=== PATIENT | male | born 1990 | race Caucasian/White ===

== ENCOUNTER 2018-01-30 18:25 | Emergency (ER) | payer SELFPAY ==
[~2018-01-30] VITALS: Ht 177.8 cm; Wt 51.5 kg
[2018-01-30 18:34] VITALS: Ht 177.8 cm; Wt 51.5 kg
[2018-01-30] MEDS ORDERED: SODIUM CHLORIDE 0.9% 1000ML 1,000 ML IV STA (18:36)
[2018-01-30 19:13] LABS: HEMATOCRIT 37.7 % (42-52); MEAN CELL VOLUME 88.5 fL (80-100); MEAN CORPUSCULAR HEMOGLOBIN 30.5 pg (25-34); MEAN CORPUSCULAR HGB CONC 34.5 g/dl (32-36); MEAN PLATELET VOLUME 9.7 fL (7.4-10.4); PLATELET COUNT 209 K/uL (130-400); RED CELL DISTRIBUTION WIDTH CV 13.6 % (11.5-14.5); RED CELL DISTRIBUTION WIDTH SD 43.6 fL (36.4-46.3); WHITE BLOOD COUNT 5.63 K/uL (4.8-10.8)
[2018-01-30 19:44] LABS: CALCIUM 8.5 mg/dl (8.5-10.1); CREATININE 0.73 mg/dl (0.60-1.40); POTASSIUM 3.4 mmol/L (3.5-5.1); TOTAL PROTEIN 7.4 gm/dl (6.4-8.2)
--- NOTE | 2018-01-30 20:01 | EMERGENCY ROOM VISIT NOTE ---
History Report prepared by Luiz: Richie Blackmon Under the Supervision of: Dr. Fabian Rodríguez M.D. First contact with patient: 18:31 Chief Complaint: OVERDOSE (ACCIDENTAL) Stated Complaint: INGESTED METHANE History of Present Illness History is limited due to altered mental status. The patient is a 27 year old male who presents to the Emergency Room. EMS states that prior to arrival, several witness reported that the patient was found wandering around [address] in [place], he was acting strangely and jumping on the ribs or cars. He does admit to taking methamphetamine as well as Suboxone at noon today. The patient reports that he was trying to get high and denies being suicidal. He has no complaints. Source of History: patient, EMS, nursing staff Onset: prior to arrival, around noon today Position: other (global) Quality: other (Suboxone and meth) Timing: other (intake prior to arrival) Modifying Factors (Relieving): other (none) Review of Systems ROS limited due to altered mental status. Past Medical & Surgical Medical Problems: (1) No significant past medical history Family History Patient reports no known family medical history. Social History Smoking Status: Unknown if Ever Smoked Current/Historical Medications No Active Prescriptions or Reported Meds Allergies Coded Allergies: No Known Allergies (Unverified , 01/30/18) Physical Exam Vital Signs Date Time Temp Pulse Resp B/P (MAP) Pulse Ox O2 Delivery O2 Flow Rate FiO2 01/31/18 00:41 46 14 99 01/31/18 00:31 108/65 01/31/18 00:11 49 12 97 01/31/18 00:01 120/77 01/30/18 23:41 50 14 96 01/30/18 23:36 50 15 96 01/30/18 23:31 104/64 01/30/18 23:06 52 15 97 01/30/18 23:01 105/68 01/30/18 22:55 63 15 98 01/30/18 22:43 52 18 107/78 99 Room Air 01/30/18 22:40 48 01/30/18 22:31 107/78 01/30/18 22:25 52 24 96 01/30/18 22:01 118/74 01/30/18 21:55 62 19 99 01/30/18 21:54 73 18 114/70 99 Room Air 01/30/18 21:31 114/70 01/30/18 21:25 53 15 97 01/30/18 21:01 123/65 01/30/18 20:55 46 14 97 01/30/18 20:46 51 18 116/73 98 Room Air 01/30/18 20:31 116/73 01/30/18 20:25 46 14 01/30/18 20:01 119/77 01/30/18 20:00 48 16 119/77 100 Room Air 01/30/18 19:55 49 13 99 01/30/18 19:31 106/64 01/30/18 19:25 53 17 97 01/30/18 19:01 115/63 01/30/18 18:55 59 16 96 01/30/18 18:42 54 01/30/18 18:41 116/70 01/30/18 18:34 36.5 62 18 96 Room Air Physical Exam Constitutional: Vital signs reviewed. Eyes: Pupils are equal round reactive to light. Conjunctiva are noninjected. ENT: Pharynx is clear without erythema or exudate. Mucous membranes are moist. Neck supple without meningeal signs. Respiratory: Clear to auscultation bilaterally. Breath sounds are equal bilaterally. Cardiovascular: Regular rate and rhythm. No rubs or gallops. GI: Soft, nondistended and nontender. Bowel sounds are present. Musculoskeletal: No peripheral edema. No lower extremity tenderness. Integumentary: No cyanosis. Neurological: Patient somnolent but will suddenly wake up and fall back asleep. Answers some questions. Psychiatric: Unable to assess. Denies suicidality and depression. Medical Decision & Procedures Laboratory Results 01/30/18 18:53 01/30/18 18:53 Test 01/30/18 18:45 01/30/18 18:52 01/30/18 18:53 Salicylates Level < 1.7 mg/dl (2.8-20) Acetaminophen Level < 2 ug/ml (10-30) Red Blood Count 4.26 M/uL (4.7-6.1) Mean Corpuscular Volume 88.5 fL (80-100) Mean Corpuscular Hemoglobin 30.5 pg (25-34) Mean Corpuscular Hemoglobin Concent 34.5 g/dl (32-36) RDW Standard Deviation 43.6 fL (36.4-46.3) RDW Coefficient of Variation 13.6 % (11.5-14.5) Mean Platelet Volume 9.7 fL (7.4-10.4) Anion Gap 6.0 mmol/L (3-11) Est Creatinine Clear Calc Drug Dose 108.8 ml/min Estimated GFR () 145.3 Estimated GFR (Non- 125.3 BUN/Creatinine Ratio 26.0 (10-20) Calcium Level 8.5 mg/dl (8.5-10.1) Total Bilirubin 0.6 mg/dl (0.2-1) Direct Bilirubin 0.2 mg/dl (0-0.2) Aspartate Amino Transf (AST/SGOT) 16 U/L (15-37) Alanine Aminotransferase (ALT/SGPT) 18 U/L (12-78) Alkaline Phosphatase 89 U/L (45-117) Total Creatine Kinase 105 U/L (39-308) Total Protein 7.4 gm/dl (6.4-8.2) Albumin 4.0 gm/dl (3.4-5.0) Thyroid Stimulating Hormone (TSH) 0.447 uIu/ml (0.300-4.500) Ethyl Alcohol mg/dL < 3.0 mg/dl (0-3) Medications Administered Medications (Trade) Dose Ordered Sig/Marito Route Start Time Stop Time Status Last Admin Dose Admin Sodium Chloride 1,000 ml @ 999 mls/hr Q1H1M STAT IV 01/30/18 18:36 01/30/18 19:36 DC 01/30/18 19:21 999 MLS/HR Medical Decision This is a 27-year-old male who presents with altered mental status. Differential diagnosis includes illicit drug use, drug overdose, metabolic derangement, disorder, substance abuse disorder. I did perform a limited focused review of portions of the patient's old chart on the electronic medical record. The patient has had no recent pertinent visits to this hospital. I did evaluate the patient as noted above. The patient has admitted to taking Suboxone and methamphetamine. He states he bought it off the street and it is not prescribed to him. He denies any suicidal intent and states he just wanted to get high. IV access was established. The patient was placed on a continuous gambling monitor. I did order and review the patient's blood work as noted in the electronic medical record. The patient was observed here until 1: 30 AM. He is now awake and alert. He states again that he was trying to get high. He denies any suicidal ideation. He is able to ambulate without difficulty at this time. He denies any trauma. He is speaking normally. He will call a friend for a ride home. Medication Reconcilliation Current Medication List: was personally reviewed by me Blood Pressure Screening Patient's blood pressure: Normal blood pressure Blood pressure disposition: Did not require urgent referral Impression Primary Impression: Illicit drug use Additional Impression: Altered mental status Scribe Attestation The scribe's documentation has been prepared under my direct and personally reviewed by me in its entirety. I confirm that the note above accurately reflects all work, treatment, procedures, and medical decision making performed by me. Departure Information Prescriptions No Active Prescriptions or Reported Meds Patient Instructions My [facility] Additional Instructions You have been examined and treated today on an emergency basis only. This is not a substitute for, or an effort to provide, complete comprehensive medical care. It is impossible to recognize and treat all injuries or illnesses in a single emergency department visit. It is therefore important that you follow up closely with your physician. Call as soon as possible for an appointment. Return for worsening symptoms or if you develop depression or thoughts of hurting yourself or others or any other concerning symptoms. Problem Qualifiers Additional Impression: Altered mental status Altered mental status type: somnolence Qualified Codes: R40.0 - Somnolence
[2018-01-31 01:20] VITALS: BP 108/65; PULSE 46; TEMP 36.5; O2SAT 99
== END 2018-01-31 01:44 | disposition home or self-care (01) ==
LOC: C.EDB 18:27
DX: F11.90 Opioid use, unspecified, uncomplicated (principal); F15.90 Other stimulant use, unspecified, uncomplicated